=== PATIENT | female | born 1990 | race Two or more races ===

== ENCOUNTER 2017-03-28 19:25 | Emergency (ER) | payer OTHER ==
[~2017-03-28] VITALS: Ht 177.8 cm; Wt 73.5 kg
[2017-03-28 19:37] VITALS: BP 116/78
[2017-03-28] MEDS ORDERED: Methocarbamol 750mg tab ORAL ONE (20:15)
[2017-03-28] MEDS ORDERED: ROBAXIN-750750 MG PO (20:22)
[2017-03-28] MEDS ORDERED: IBUPROFEN600 MG ORAL (20:22)
--- NOTE | 2017-03-28 20:29 | Emergency Room Report ---
History of Present Illness General Chief Complaint: Back Pain-No Injury Source: Patient Present Illness HPI 26-year-old female p/w back pain for 3 days. Patient states pain started when she got up 3 days ago. Pain is localized to the lateral lower back, sharp in nature, radiating to buttocks. Movement worsens pain. There are no alleviating factors. Has not taken any pain meds yet This is the first occurrence of back pain. Denies trauma. Denies lower extremity weakness/numbness, no bowel/bladder retention or incontinence, saddle anesthesia. Denies fever, chills, abdominal pain, n/v, dysuria/hematuria. No history of IVDA Allergies: Coded Allergies: No Known Allergies (Unverified , 03/28/17) Patient History Past Medical History: see triage record Past Surgical History: none Pertinent Family History: none Last Menstrual Period: 03/25/17 Now: No : 2 Para: 2 Reviewed Nursing Documentation: PMH: Agreed, PSxH: Agreed Nursing Documentation-PMH Past Medical History: No Stated History Review of Systems All Other Systems: negative except mentioned in HPI Physical Exam Vital Signs Date Time Temp Pulse Resp B/P (MAP) Pulse Ox O2 Delivery O2 Flow Rate FiO2 03/28/17 19:34 97.5 83 14 116/78 98 Room Air Sp02 EP Interpretation: reviewed, normal General Appearance: normal inspection, well appearing, no apparent distress, alert, GCS 15, non-toxic Head: normocephalic, atraumatic Eyes: bilateral eye normal inspection, bilateral eye PERRL, bilateral eye EOMI ENT: normal ENT inspection, normal pharynx, normal voice, moist mucus membranes Neck: normal inspection, full range of motion, supple Respiratory: normal inspection, lungs clear, normal breath sounds, no respiratory distress, no retraction, no wheezing, speaking full sentences, chest symmetrical Cardiovascular #1: normal inspection, regular rate, rhythm, no edema, normal capillary refill Cardiovascular #2: 2+ radial (R), 2+ radial (L) Gastrointestinal: normal inspection, non tender, soft, non-distended, no guarding Musculoskeletal: normal range of motion, other - Mild bilateral paraspinal lower lumbar tenderness, no midline tenderness, full range of motion all extremities Neurologic: normal inspection, alert, oriented x3, responsive, motor strength/ tone normal, sensory intact, normal gait, speech normal Psychiatric: normal inspection, judgement/insight normal, memory normal Skin: normal inspection, normal color, no rash, warm/dry, well hydrated, normal turgor Medical Decision Making Diagnostic Impression: Primary Impression: Back pain ER Course 26-year-old female no significant past medical history presenting with back pain for 3 days DDX: Likely musculoskeletal back pain vs. muscular strain vs. sciatica Lumbar fracture is unlikely given patients age, no midline tenderness, no history of trauma, and that patient is ambulatory. Therefore, at this time no imaging is indicated Serious diagnoses such as cord compression, epidural abscess is unlikely in this patient given the clinical scenario and abscess of neurological symptoms or findings. Patient appears nontoxic. Patient also not experiencing any urinary symptoms, no fever no chills Plan: Motrin, robaxin ER course: Patient has remained nontoxic appearing and ambulatory in the ED. Pain improved w/ medications Disposition: Patient will be discharged to home with prescription of motrin and robaxin. Patient cautioned of the effects of robaxin including possible impairment of physical or mental abilities. Patient was instructed to refrain from operating machinery or driving. Patient is also cautioned on the GI effects of motrin and to take sparingly. Patient verbalized understanding. Strict precautions discussed with patient on when to emergently return to the ED which includes severe/worsening back pain, leg weakness/numbness, urinary retention/incontinence, fever or chills, which may indicate severe illness. Patient is to follow up with their PMD within 5 days. Patient agrees with plan. Please note that this Emergency Department Report was dictated using [employer]furnace setter technology software, occasionally this can lead to erroneous entry secondary to interpretation by the dictation equipment. Last Vital Signs Date Time Temp Pulse Resp B/P (MAP) Pulse Ox O2 Delivery O2 Flow Rate FiO2 03/28/17 19:37 97.5 83 14 116/78 98 Room Air Disposition: HOME, SELF-CARE Condition: Improved Scripts Ibuprofen* (MOTRIN*) 600 Mg Tablet 600 MG ORAL Q8H Y for For Pain, #30 TAB 0 Refills Prov: Marce Hidalgo M.D. 03/28/17 Methocarbamol* (ROBAXIN-750*) 750 Mg Tablet 750 MG PO QID, #28 TAB 0 Refills Prov: Marce Hidalgo M.D. 03/28/17 Patient Instructions: Back Pain, Adult Marce Hidalgo.D. Mar 28, 2017 20:29
[2017-03-28 20:35] VITALS: BP 121/74
== END 2017-03-28 20:35 | disposition home or self-care (01) ==
LOC: EMR 20:03
DX: M54.9 Dorsalgia, unspecified (principal)
CPT/HCPCS: 99284

== ENCOUNTER 2020-03-16 09:55 | Emergency (ER) | payer OTHER ==
[~2020-03-16] VITALS: Ht 170.2 cm; Wt 88.5 kg
[~2020-03-16 09:55] MED LIST: IBUPROFEN600 MG ORAL; ROBAXIN-750750 MG PO
[2020-03-16 10:28] LABS: APPEARANCE,URINE CLEAR; BILIRUBIN, URINE NEGATIVE (NEGATIVE); COLOR,URINE PALE YELLOW; GLUCOSE, URINE (UA) NEGATIVE (NEGATIVE); KETONES,URINE NEGATIVE (NEGATIVE); LEUKOCYTE ESTERASE ,URINE NEGATIVE (NEGATIVE); NITRITE,URINE NEGATIVE (NEGATIVE); PH,URINE 7 (4.5-8.0); PROTEIN,URINE NEGATIVE (NEGATIVE); UROBILINOGEN,URINE NORMAL MG/DL (0.0-1.0)
--- NOTE | 2020-03-16 10:47 | NUR ---
ED Nurse Note: Pt ambulated to ED from [facility] d/t abdominal cramping lower bilateral with radiation around to back. x 1 week. unk status Pt is AOx4, calm and cooperative to care, VSS, on RA, afebrile on triage.
[2020-03-16 10:48] VITALS: BP 123/80
--- NOTE | 2020-03-16 11:17 | NUR ---
ED Nurse Note: US at bedside.
--- NOTE | 2020-03-16 12:01 | NUR ---
ED Nurse Note: US done.
--- NOTE | 2020-03-16 12:29 | Diagnostic Imaging Report ---
Indication: Cramping and lower back pain Technique: Transabdominal and transvaginal images of the pelvis. Doppler interrogation of the ovaries Comparison: none Findings: Uterus measures 8.6 x 5 cm. Endometrium measures 6 mm thick. No myometrial abnormality. There is a 17 x 6 mm hyperechoic focus that appears to be in the endocervical canal. Multiple small nabothian cysts are seen within the cervix. No free cul-de-sac fluid. There is also a small calcification within the cervix. The right ovary measures 3.3 cm length, is located somewhat posteriorly. Left ovary measures 3.3 cm length. Both ovaries demonstrate prominent follicles both ovaries demonstrate normal blood flow. Impression: Possible 17 x 6 mm hyperechoic focus within the cervical canal, could represent a cervical polyp a consider MRI or direct observation to confirm Small cervical nabothian cyst incidentally noted Unremarkable ovaries
[2020-03-16] MEDS ORDERED: IBUPROFEN600 M1 ORAL (12:52)
[2020-03-16 13:00] VITALS: BP 130/85
--- NOTE | 2020-03-16 13:00 | NUR ---
ER DISCHARGE NOTE: Patient is cleared to be discharged per ERMD, pt is aox4, on room air, with stable vital signs. pt was given dc and prescription instructions, pt was able to verbalize understanding, pt id band removed. pt is able to ambulate with steady gait. pt took all belongings.
--- NOTE | 2020-03-22 14:10 | Emergency Room Report ---
History of Present Illness General Chief Complaint: Abdominal Pain Source: Patient Present Illness HPI 29-year-old female presents to ED complaining of lower cramping pain x1 week. Cramping, 8 out of 10, nonradiating. Radiates to back. Denies bleeding. Denies dysuria or hematuria. Denies vaginal discharge. No other aggravating relieving factors. 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 COVID-19 Screening: Negative COVID-19 COVID-19 Testing Source: [facility] Patient History Past Medical History: none Past Surgical History: none Pertinent Family History: none Social History: Denies: smoking, alcohol use, drug use Last Menstrual Period: 10-25 Now: No Immunizations: UTD Reviewed Nursing Documentation: PMH: Agreed; PSxH: Agreed Nursing Documentation-PMH Past Medical History: No Stated History Review of Systems All Other Systems: negative except mentioned in HPI Physical Exam Sp02 EP Interpretation: reviewed, normal General Appearance: no apparent distress, alert, GCS 15, non-toxic Head: normocephalic, atraumatic Eyes: bilateral eye normal inspection, bilateral eye PERRL ENT: hearing grossly normal, normal pharynx, no angioedema, normal voice Neck: full range of motion, supple/symm/no masses Respiratory: chest non-tender, lungs clear, normal breath sounds, speaking full sentences Cardiovascular #1: regular rate, rhythm, no edema Cardiovascular #2: 2+ carotid (R), 2+ carotid (L), 2+ radial (R), 2+ radial (L), 2+ dorsalis pedis (R), 2+ dorsalis pedis (L) Gastrointestinal: normal bowel sounds, soft, non-distended, no guarding, no rebound, tenderness - suprapubic\ Rectal: deferred Genitourinary: normal inspection, no CVA tenderness Musculoskeletal: back normal, normal range of motion, gait/station normal, non- tender Neurologic: alert, motor strength/tone normal, oriented x3, sensory intact, responsive, speech normal Psychiatric: judgement/insight normal, memory normal, mood/affect normal, no suicidal/homicidal ideation Reflexes: 3+ bicep (R), 3+ bicep (L), 3+ tricep (R), 3+ tricep (L), 3+ knee (R), 3+ knee (L) Skin: no rash Lymphatic: no adenopathy Medical Decision Making Diagnostic Impression: Primary Impression: Cervical polyp Additional Impression: Ovarian cyst Qualified Codes: N83.201 - Unspecified ovarian cyst, right side; N83.202 - Unspecified ovarian cyst, left side ER Course Hospital Course 29-year-old female presents with pelvic cramping pain differential diagnoses include: gastrits, gastroenterits, ectopic , ova mic torsion/cyst, UTI Clinical course Patient placed on stretcher in ED. After initial history and physical I ordered UA, US UA negative ultrasound shows bilateral ovarian cysts, cervical polyp Discussed findings with patient. I will provide copy of ultrasound report. Safe for discharge with close outpatient follow-up. I will provide referrals Diagnosis - cervical polyp, ovarian cyst Stable and discharged to home. Followup with PMD/REDUCING SYSTEM OPERATOR. Return to ED if symptoms recur or worsen Labs Test 03/16/20 10:09 Urine Color Pale yellow Urine Appearance Clear Urine pH 7 (4.5-8.0) Urine Specific [place] 1.005 (1.005-1.035) Urine Protein Negative (NEGATIVE) Urine Glucose (UA) Negative (NEGATIVE) Urine Ketones Negative (NEGATIVE) Urine Blood Negative (NEGATIVE) Urine Nitrite Negative (NEGATIVE) Urine Bilirubin Negative (NEGATIVE) Urine Urobilinogen Normal MG/DL (0.0-1.0) Urine Leukocyte Esterase Negative (NEGATIVE) Urine RBC 0 /HPF (0 - 2) Urine WBC 0 /HPF (0 - 2) Urine Squamous Epithelial Cells Occasional /LPF Urine Bacteria None /HPF (NONE) Urine HCG, Qualitative Negative (NEGATIVE) CT/MRI/US Diagnostic Results CT/MRI/US Diagnostic Results : Imaging Test Ordered: Pelvic US Impression Procedure: US Pelvic w/Transvag Indication: Cramping and lower back pain Technique: Transabdominal and transvaginal images of the pelvis. Doppler interrogation of the ovaries Comparison: none Findings: Uterus measures 8.6 x 5 cm. Endometrium measures 6 mm thick. No myometrial abnormality. There is a 17 x 6 mm hyperechoic focus that appears to be in the endocervical canal. Multiple small nabothian cysts are seen within the cervix. No free cul-de-sac fluid. There is also a small calcification within the cervix. The right ovary measures 3.3 cm length, is located somewhat posteriorly. Left ovary measures 3.3 cm length. Both ovaries demonstrate prominent follicles both ovaries demonstrate normal blood flow. Impression: Possible 17 x 6 mm hyperechoic focus within the cervical canal, could represent a cervical polyp a consider MRI or direct observation to confirm Small cervical nabothian cyst incidentally noted Unremarkable ovaries Status: improved Disposition: HOME, SELF-CARE Condition: Stable Scripts Ibuprofen* (MOTRIN*) 600 Mg Tablet 600 MG ORAL Q8H PRN for FOR PAIN, #30 TAB 0 Refills Prov: Prasad Sandoval MD 03/16/20 Referrals: [facility] (PCP) [facility] Patient Instructions: Ovarian Cyst, [id number] Prasad Sandoval MD Mar 22, 2020 14:10
== END 2020-03-16 13:00 | disposition home or self-care (01) ==
LOC: EMR 12:40
DX: N84.1 Polyp of cervix uteri (principal); N83.202 Unspecified ovarian cyst, left side; N83.201 Unspecified ovarian cyst, right side; N88.8 Other specified noninflammatory disorders of cervix uteri
CPT/HCPCS: 76830; 76856; 81001; 81025; 99284